=== PATIENT | female | born 1970 | race Caucasian/White ===

== ENCOUNTER 2018-06-24 18:35 | Inpatient (IN) | payer OTHER ==
[2018-06-24] MEDS ORDERED: DEXTROSE 50% 50 ML SYRINGE IV ×2 (19:00)
[2018-06-24] MEDS ORDERED: GLUCOSE GEL 15 GRAM TUBE BUCCAL (19:00)
[2018-06-24] MEDS ORDERED: GLUCOSE GEL 15 GRAM TUBE PO ×2 (19:00)
[2018-06-24] MEDS ORDERED: GLUCAGON 1 MG INJ IM (19:00)
[2018-06-24] MEDS ORDERED: NACL 0.9% 3 ML SYG IV (19:00)
[2018-06-24] MEDS ORDERED: ACETAMINOPHEN 325 MG TAB PO (19:00)
[2018-06-24] MEDS: ONDANSETRON 4 MG INJ IV (20:25)
[2018-06-24] MEDS: HYDROCODONE/APAP (5/325) TAB PO (20:25)
[2018-06-24] MEDS: FERROUS SULFATE (EC) 325 MG TAB PO (20:25)
[2018-06-24] MEDS: DEXTROSE 5%-0.45% NACL 1,000 ML IV (20:33)
[2018-06-24] MEDS: ATORVASTATIN 10 MG TAB PO (20:33)
[2018-06-24] MEDS: INSULIN ASPART [NOVOLOG] 3 ML PEN SC (20:33)
[2018-06-25] MEDS ORDERED: PANTOPRAZOLE (EC) 40 MG TAB PO (04:55)
[2018-06-25] MEDS: PANTOPRAZOLE (EC) 40 MG TAB PO (05:00)
[2018-06-25] MEDS: HYDROCODONE/APAP (5/325) TAB PO ×2 (05:00→20:36)
[2018-06-25 05:18] LABS: ADD MAN DIFF? NO
[2018-06-25 05:19] LABS: WHITE BLOOD COUNT 8.5 10^3/ul (4.8-10.8)
[2018-06-25 05:19] LABS: BASOPHILS % 0.2 % (0.0-2.0); EOSINOPHILS # 0.1 10^3/ul (0.0-0.5); EOSINOPHILS % 0.9 % (0.0-7.0); HEMATOCRIT 38.1 % (37.0-47.0); HEMOGLOBIN 12.6 g/dl (12.0-16.0); LYMPHOCYTES # 0.9 10^3/ul (0.8-2.9); LYMPHOCYTES % 10.3 % (15.0-51.0); MEAN CORPUSCULAR HEMOGLOBIN 31.2 pg (29.0-33.0); MEAN CORPUSCULAR HGB CONC 33.1 g/dl (32.0-37.0); MEAN CORPUSCULAR VOLUME 94.3 fl (82.0-101.0); MEAN PLATELET VOLUME 10.6 fl (7.4-10.4); MONOCYTE # 0.4 10^3/ul (0.3-0.9); MONOCYTES % 4.7 % (0.0-11.0); NEUTROPHIL # 7.1 10^3/ul (1.6-7.5); NEUTROPHILS % 83.3 % (39.0-77.0); PLATELET COUNT 177 10^3/UL (140-415); RED BLOOD COUNT 4.04 10^6/ul (4.20-5.40); RED CELL DISTRIBUTION WIDTH 15.4 % (11.5-14.5)
[2018-06-25 05:45] LABS: ALANINE AMINOTRANSFERASE 103 IU/L (13-69); ALBUMIN 4.1 g/dl (3.3-4.9); ALKALINE PHOSPHATASE 114 IU/L (42-121); ANION GAP 11 (5-13); ASPARTATE AMINO TRANSFERASE 76 IU/L (15-46); BILIRUBIN,INDIRECT 1.1 mg/dl (0-1.1); BILIRUBIN,TOTAL 1.1 mg/dl (0.2-1.3); BLOOD UREA NITROGEN 11 mg/dl (7-20); CALCIUM 8.7 mg/dl (8.4-10.2); CARBON DIOXIDE 24 mmol/L (21-31); CHLORIDE 102 mmol/L (97-110); CREATININE 1.39 mg/dl (0.44-1.00); Estimated GFR 40 mL/min (>60); GLUCOSE 156 mg/dl (70-220); POTASSIUM 4.2 mmol/L (3.5-5.1); SODIUM 137 mmol/L (135-144); TOTAL PROTEIN 7.8 g/dl (6.1-8.1)
[2018-06-25 07:08] LABS: HEMOGLOBIN A1C 6.2 % (0-5.9)
[2018-06-25] MEDS: FERROUS SULFATE (EC) 325 MG TAB PO ×2 (08:21→20:36)
[2018-06-25] MEDS: LACTOBACILLUS RHAMNOSUS CAP PO ×4 (08:21→17:23)
[2018-06-25] MEDS: LISINOPRIL 10 MG TAB PO (08:21)
[2018-06-25] MEDS: INSULIN ASPART [NOVOLOG] 3 ML PEN SC ×4 (08:22→20:37)
[2018-06-25] MEDS: DEXTROSE 5%-0.45% NACL 1,000 ML IV ×2 (08:23→20:42)
[2018-06-25] MEDS: ATORVASTATIN 10 MG TAB PO (20:36)
[2018-06-26] MEDS ORDERED: morphine 2 MG INJ IV (00:30)
[2018-06-26] MEDS: PANTOPRAZOLE (EC) 40 MG TAB PO (05:01)
[2018-06-26] MEDS: HYDROCODONE/APAP (5/325) TAB PO (05:01)
[2018-06-26 05:08] LABS: ADD MAN DIFF? NO
[2018-06-26 05:16] LABS: WHITE BLOOD COUNT 5.9 10^3/ul (4.8-10.8)
[2018-06-26 05:16] LABS: BASOPHILS % 0.3 % (0.0-2.0); EOSINOPHILS # 0.1 10^3/ul (0.0-0.5); EOSINOPHILS % 1.4 % (0.0-7.0); HEMATOCRIT 37.8 % (37.0-47.0); HEMOGLOBIN 12.3 g/dl (12.0-16.0); LYMPHOCYTES # 1.6 10^3/ul (0.8-2.9); LYMPHOCYTES % 26.7 % (15.0-51.0); MEAN CORPUSCULAR HEMOGLOBIN 30.8 pg (29.0-33.0); MEAN CORPUSCULAR HGB CONC 32.5 g/dl (32.0-37.0); MEAN CORPUSCULAR VOLUME 94.5 fl (82.0-101.0); MEAN PLATELET VOLUME 10.7 fl (7.4-10.4); MONOCYTE # 0.4 10^3/ul (0.3-0.9); NEUTROPHIL # 3.8 10^3/ul (1.6-7.5); NEUTROPHILS % 64.7 % (39.0-77.0); PLATELET COUNT 180 10^3/UL (140-415); RED CELL DISTRIBUTION WIDTH 15.2 % (11.5-14.5)
[2018-06-26 05:43] LABS: ALANINE AMINOTRANSFERASE 87 IU/L (13-69); ALBUMIN 4.2 g/dl (3.3-4.9); ALKALINE PHOSPHATASE 105 IU/L (42-121); ANION GAP 11 (5-13); ASPARTATE AMINO TRANSFERASE 60 IU/L (15-46); BILIRUBIN,INDIRECT 0.8 mg/dl (0-1.1); BILIRUBIN,TOTAL 0.8 mg/dl (0.2-1.3); BLOOD UREA NITROGEN 12 mg/dl (7-20); CALCIUM 8.8 mg/dl (8.4-10.2); CARBON DIOXIDE 25 mmol/L (21-31); CHLORIDE 103 mmol/L (97-110); CREATININE 1.34 mg/dl (0.44-1.00); Estimated GFR 42 mL/min (>60); GLUCOSE 161 mg/dl (70-220); MAGNESIUM 2.2 mg/dl (1.7-2.5); POTASSIUM 3.8 mmol/L (3.5-5.1); SODIUM 139 mmol/L (135-144); TOTAL PROTEIN 7.2 g/dl (6.1-8.1)
[2018-06-26] MEDS: INSULIN ASPART [NOVOLOG] 3 ML PEN SC ×2 (08:00→12:00)
[2018-06-26] MEDS: LACTOBACILLUS RHAMNOSUS CAP PO ×2 (08:32→12:41)
[2018-06-26] MEDS: FERROUS SULFATE (EC) 325 MG TAB PO (08:32)
[2018-06-26] MEDS: LISINOPRIL 10 MG TAB PO (08:33)
== END 2018-06-26 13:20 | disposition home or self-care (01) | DRG 392 ==
LOC: PP2 18:35
PROVIDERS: Internal Medicine
DX: K52.9 Noninfective gastroenteritis and colitis, unspecified (principal); N17.9 Acute kidney failure, unspecified; E87.1 Hypo-osmolality and hyponatremia; E11.22 Type 2 diabetes mellitus with diabetic chronic kidney disease; E86.0 Dehydration; I12.9 Hypertensive chronic kidney disease with stage 1 through stage 4 chronic kidney disease, or unspecified chronic kidney disease; N18.9 Chronic kidney disease, unspecified; Z79.4 Long term (current) use of insulin; Z79.84 Long term (current) use of oral hypoglycemic drugs; Z85.3 Personal history of malignant neoplasm of breast; Z90.10 Acquired absence of unspecified breast and nipple; Z90.49 Acquired absence of other specified parts of digestive tract
CPT/HCPCS: 73562; 80053; 82962; 83036; 83735; 85025; 87045; 87177; 93971

== ENCOUNTER 2019-03-30 07:29 | Day surgery (SDC) | payer OTHER ==
[~2019-03-30 07:29] MED LIST: CEFAZOLIN 2 GM/50 ML (PMX) 50 ML IVPB; SOD CHLORIDE 0.9% 1,000 ML IV
[2019-03-30 08:45] LABS: ADD MAN DIFF? NO
[2019-03-30 08:46] LABS: WHITE BLOOD COUNT 8.1 10^3/ul (4.8-10.8)
[2019-03-30 08:46] LABS: BASOPHILS % 0.5 % (0.0-2.0); EOSINOPHILS # 0.1 10^3/ul (0.0-0.5); EOSINOPHILS % 1.4 % (0.0-7.0); HEMATOCRIT 39.2 % (37.0-47.0); HEMOGLOBIN 12.9 g/dl (12.0-16.0); LYMPHOCYTES # 2.6 10^3/ul (0.8-2.9); LYMPHOCYTES % 31.9 % (15.0-51.0); MEAN CORPUSCULAR HEMOGLOBIN 30.4 pg (29.0-33.0); MEAN CORPUSCULAR HGB CONC 32.9 g/dl (32.0-37.0); MEAN CORPUSCULAR VOLUME 92.2 fl (82.0-101.0); MEAN PLATELET VOLUME 10.3 fl (7.4-10.4); MONOCYTE # 0.5 10^3/ul (0.3-0.9); MONOCYTES % 5.6 % (0.0-11.0); NEUTROPHIL # 4.8 10^3/ul (1.6-7.5); NEUTROPHILS % 59.9 % (39.0-77.0); PLATELET COUNT 199 10^3/UL (140-415); RED BLOOD COUNT 4.25 10^6/ul (4.20-5.40); RED CELL DISTRIBUTION WIDTH 13.5 % (11.5-14.5)
[2019-03-30] MEDS: SOD CHLORIDE 0.9% 1,000 ML IV (08:51)
[2019-03-30] MEDS ORDERED: CEFAZOLIN 2 GM/50 ML (PMX) 50 ML IVPB (09:00)
[2019-03-30 09:03] LABS: ALANINE AMINOTRANSFERASE 125 IU/L (13-69); ALBUMIN 4.4 g/dl (3.3-4.9); ALBUMIN/GLOBULIN RATIO 0.95; ALKALINE PHOSPHATASE 93 IU/L (42-121); ANION GAP 8 (5-13); ASPARTATE AMINO TRANSFERASE 79 IU/L (15-46); BILIRUBIN,INDIRECT 0.7 mg/dl (0-1.1); BILIRUBIN,TOTAL 0.7 mg/dl (0.2-1.3); CARBON DIOXIDE 27 mmol/L (21-31); CHLORIDE 102 mmol/L (97-110); Estimated GFR 55 mL/min (>60); GLUCOSE 164 mg/dl (70-220); POTASSIUM 4.2 mmol/L (3.5-5.1)
[2019-03-30 09:08] LABS: SODIUM 137 mmol/L (135-144)
[2019-03-30 09:09] LABS: BLOOD UREA NITROGEN 21 mg/dl (7-20); CREATININE 1.06 mg/dl (0.44-1.00)
[2019-03-30] MEDS ORDERED: CEFAZOLIN 1 GM INJ (09:56)
[2019-03-30] MEDS ORDERED: PROPOFOL 20 ML (09:56)
[2019-03-30] MEDS ORDERED: MIDAZOLAM 1 MG/ML 2 ML INJ (09:56)
[2019-03-30] MEDS ORDERED: FENTAnyl 50 MCG/ML VIAL (09:56)
[2019-03-30] MEDS ORDERED: DIPHENHYDRAMINE 50 MG INJ IV (10:00)
[2019-03-30] MEDS ORDERED: FENTAnyl 50 MCG/ML VIAL IV ×2 (10:00)
[2019-03-30] MEDS ORDERED: METOCLOPRAMIDE 10 MG INJ IV (10:00)
[2019-03-30] MEDS ORDERED: OXYCODONE/ACETAMINOPHEN (5/325) TAB PO (10:00)
[2019-03-30] MEDS ORDERED: MEPERIDINE 25 MG INJ IV (10:00)
[2019-03-30] MEDS ORDERED: HYDROmorphONE 1 MG/5 ML IV SYRINGE IV ×2 (10:00)
[2019-03-30] MEDS ORDERED: ONDANSETRON 4 MG INJ IV (10:00)
[2019-03-30] MEDS ORDERED: DEXAMETHASONE 4 MG/ML 5 ML INJ (10:10)
[2019-03-30] MEDS ORDERED: ONDANSETRON 4 MG INJ (10:10)
[2019-03-30] MEDS ORDERED: METOCLOPRAMIDE 10 MG INJ (10:10)
[2019-03-30] MEDS: LIDOCAINE 1%/EPI 30 ML INJ INJ (10:25)
[2019-03-30] MEDS ORDERED: LIDOCAINE 1%/EPI 30 ML INJ (10:29)
== END 2019-03-30 12:20 | disposition home or self-care (01) ==
LOC: SDS 07:29
DX: Z45.2 Encounter for adjustment and management of vascular access device (principal); Z85.3 Personal history of malignant neoplasm of breast; I10 Essential (primary) hypertension; E78.5 Hyperlipidemia, unspecified; E11.9 Type 2 diabetes mellitus without complications; E66.9 Obesity, unspecified
CPT/HCPCS: 36590; 71045; 80053; 82962; 85025; 88300; 93005